=== PATIENT | male | born 1975 | race Caucasian/White ===

== ENCOUNTER 2018-01-12 16:37 | Emergency (ER) | payer MEDICAID ==
[~2018-01-12] VITALS: Ht 167.6 cm; Wt 97.5 kg
[2018-01-12 16:48] VITALS: BP 125/80
--- NOTE | 2018-01-12 16:50 | NUR ---
PER DR ADAN PT [facility]UL[facility]
--- NOTE | 2018-01-12 19:22 | NUR ---
PT TAKEN TO CHAIR B
--- NOTE | 2018-01-12 20:12 | NUR ---
42Y/M PT. PRESESNT TO ED WITH C/O LT MIDIAL KNEE PAIN; DENIES INJURY; SEEN HERE ON 01/01/2018 FOR THE SAME S/S. AAO X4, AMBULATORY WITH UNSTEADY GAIT DUE TO PAIN. LT. KNEE PAIN 02/26. VSS, ER MADE AWARE OF PT. STATUS.
[2018-01-12] MEDS ORDERED: IBUPROFEN 600 MG TAB PO ONE (20:50)
--- NOTE | 2018-01-12 21:05 | NUR ---
Patient discharged with v/s stable. Written and verbal after care instructions given and explained. Patient alert, oriented and verbalized understanding of instructions. Ambulatory with steady gait. All questions addressed prior to discharge. ID band removed. Patient advised to follow up with PMD. Rx of NAPROSYN 500 MG, TRAMADOL 50 MG given. Patient educated on indication of medication including possible reaction and side effects. Opportunity to ask questions provided and answered.
[2018-01-12 21:16] VITALS: BP 127/70
== END 2018-01-12 21:05 | disposition home or self-care (01) ==
LOC: MED 16:37
DX: M25.562 Pain in left knee (principal)
CPT/HCPCS: 99283

== ENCOUNTER 2018-04-09 22:30 | Emergency (ER) | payer MEDICAID ==
[~2018-04-09] VITALS: Ht 167.6 cm; Wt 95.3 kg
[2018-04-09 22:34] VITALS: BP 140/92
--- NOTE | 2018-04-09 22:36 | NUR ---
TO LOBBY A/W BED, TAMIKA PEREIRA NOTED
[2018-04-10] MEDS ORDERED: ALUMINUM HYD/MAG/SIMETHICONE 30 ML, DICYCLOMINE HCL LIQUID 20 MG, LIDOCAINE VISCOUS 2% ... PO ONE ×3 (01:55)
[2018-04-10] MEDS ORDERED: FAMOTIDINE 20 MG TAB PO ONE (01:55)
[2018-04-10] MEDS ORDERED: METOCLOPRAMIDE 10 MG TAB PO ONE (01:55)
--- NOTE | 2018-04-10 02:09 | NUR ---
PT BIB SELF C/O ABD PAIN WITH VOMITING AN HOUR AGO. SKIN IS INTACT, PINK/WARM/DRY; AAOX4, PERRL, WITH EVEN AND STEADY GAIT; LUNGS CLEAR BL, BREATHING UNLABORED; HR EVEN AND REGULAR, BL PERIPHERAL PULSES PRESENT; BS ACTIVE X4, NO TENDERNESS TO PALPATION. PT DENIES ANY FEVER, CP, SOB, OR COUGH AT THIS TIME; PT STATES 4/10 PAIN AT THIS TIME; VSS; PATIENT POSITIONED FOR COMFORT; HOB ELEVATED; BEDRAILS UP X2; BED DOWN.
--- NOTE | 2018-04-10 02:13 | NUR ---
PO MEDS GIVEN-NADR AT THIS TIME. LAB AT BEDSIDE-BLOOD SENT TO LAB
[2018-04-10 02:39] LABS: ALBUMIN 3.6 g/dL (3.4-5.0); ANION GAP 10.1 (8-16); CARBON DIOXIDE 28.7 mmol/L (21-32); POTASSIUM 3.8 mmol/L (3.5-5.1); TOTAL BILIRUBIN 0.5 mg/dL (0.0-1.0)
[2018-04-10 03:19] LABS: BASOPHILS % (AUTO) 0.5 % (0.0-2.0); EOSINOPHILS # (AUTO) 0.1 K/uL (0-0.4); EOSINOPHILS % (AUTO) 1.1 % (0.0-4.0); HEMATOCRIT 40.4 % (36-52); HEMOGLOBIN 14.4 g/dL (12.0-18.0); LYMPHOCYTES # (AUTO) 2.1 K/uL (2.0-11.5); LYMPHOCYTES % (AUTO) 30.8 % (20.5-51.1); MEAN CORPUSCULAR HEMOGLOBIN 30 pg (27-31); MEAN CORPUSCULAR HGB CONC 36 g/dL (33-37); MEAN CORPUSCULAR VOLUME 83.1 fL (80-94); MONOCYTES # (AUTO) 0.4 K/uL (0.8-1.0); MONOCYTES % (AUTO) 6.2 % (1.7-9.3); NEUTROPHILS # (AUTO) 4.3 K/uL (1.8-7.7); NEUTROPHILS % (AUTO) 61.4 % (42.2-75.2); PLATELET COUNT (AUTO) 227 K/uL (140-450); RED BLOOD CELL COUNT(AUTO) 4.86 MIL/uL (4.20-6.10); RED CELL DISTRIBUTION WIDTH 12.5 % (11.6-13.7)
--- NOTE | 2018-04-10 03:50 | NUR ---
Patient discharged with v/s stable. Written and verbal after care instructions given and explained. Patient alert, oriented and verbalized understanding of instructions. Ambulatory with steady gait. All questions addressed prior to discharge. ID band removed. Patient advised to follow up with PMD. Rx of PEPCID, REGLAN given. Patient educated on indication of medication including possible reaction and side effects. Opportunity to ask questions provided and answered.
[2018-04-10 03:53] VITALS: BP 135/87
== END 2018-04-10 03:50 | disposition home or self-care (01) ==
LOC: MED 22:30
DX: R11.10 Vomiting, unspecified (principal); R10.13 Epigastric pain; R63.0 Anorexia
CPT/HCPCS: 36415; 80053; 81002; 83690; 85025; 99284; J8597